=== PATIENT | female | born 1990 | race Caucasian/White ===

== ENCOUNTER 2016-10-31 14:50 | Emergency (ER) | payer OTHER ==
[2016-10-31 18:36] VITALS: BP 113/77
--- NOTE | 2016-10-31 18:46 | UC ---
Complaint Female HPI - History Of Current Complaint Chief Complaint: [facility]CGU Stated Complaint: PERSONAL Time Seen by Provider: 10/31/16 17:42 Hx Obtained From: Patient Hx Last Menstrual Period: 10/26/16 ?: No Onset/Duration: Gradual Onset, Lasting Weeks - 2, Still Present, Worse Since - LAST 2 DAYS. VERY MILD UNTIL NOW. Timing: Constant Severity Initially: Mild Severity Currently: Moderate - ITCHY Character: Not Applicable - IRRITABLE, ITCHY Aggravating Factor(s): Nothing Alleviating Factor(s): Nothing Associated Signs And Symptoms: Positive: Vaginal Discharge - WHITE. Negative: Fever, Vaginal Bleeding/Discharge, Nausea, Vomiting(# Of Episodes =), Genital Swelling, Genital Blisters - Allergies/Home Medications Allergies/Adverse Reactions: Allergies Allergy/AdvReac Type Severity Reaction Status Date / Time Sulfa Drugs Allergy Hives Verified 10/31/16 16:11 PMH/Surg Hx/FS Hx/Imm Hx Previously Healthy: Yes Endocrine History Of: Denies: Diabetes, Thyroid Disease Cardiovascular History Of: Denies: Cardiac Disorders, Hypertension Respiratory History Of: Denies: COPD, Asthma GI/ History Of: Denies: Ulcer Psychological History Of: Denies: Anxiety, Depression - Surgical History Surgical History: None - Family History Known Family History: Positive: Cardiac Disease Negative: Hypertension, Diabetes - Social History Occupation: Employed Full-time Lives: With Family Alcohol Use: Daily Alcohol Amount: 1 beer a day Substance Use Type: None Smoking Status (MU): Never Smoked Tobacco - Immunization History Most Recent Influenza Vaccination: last year Most Recent Tetanus Shot: utd 1 week ago Most Recent Pneumonia Vaccination: none Review of Systems Constitutional: Negative Skin: Negative Respiratory: Negative Cardiovascular: Negative Gastrointestinal: Negative Genitourinary: Other - SEE HPI All Other Systems Reviewed And Are Negative: Yes Physical Exam Triage Information Reviewed: Yes Appearance: Well-Appearing, No Pain Distress, Well-Nourished Vital Signs: Initial Vital Signs Temp 99.6 F 10/31/16 16:12 Pulse 76 10/31/16 16:12 Resp 16 10/31/16 16:12 BP 109/78 10/31/16 16:12 Pulse Ox 100 10/31/16 16:12 Vital Signs Reviewed: Yes Eyes: Positive: Conjunctiva Clear. Negative: Discharge ENT: Positive: Hearing grossly normal. Negative: Muffled/hoarse voice Neck: Positive: Supple Respiratory: Positive: Lungs clear, Normal breath sounds, No respiratory distress, No accessory muscle use Cardiovascular: Positive: RRR, No Murmur Abdomen Description: Positive: Nontender, Soft. Negative: CVA Tenderness (R), CVA Tenderness (L), Distended, Guarding Bowel Sounds: Positive: Present Musculoskeletal Exam: Normal Neurological: Positive: Alert, Muscle Tone Normal Psychological: Positive: Age Appropriate Behavior Skin Exam: Normal UC Physical Exam Vital Signs On Initial Exam: Initial Vitals Temp Pulse Resp BP Pulse Ox 99.6 F 76 16 109/78 100 10/31/16 16:12 10/31/16 16:12 10/31/16 16:12 10/31/16 16:12 10/31/16 16:12 - Genitalia Exam Female Genitourinary: Normal External Exam, Other - NO DISCHARGE OR ODOR NOTED IN PROCESS OF OBTAINING AFFIRM SWAB. Complaint Female Dx - Course Course Of Treatment: STD SCREENING OFFERED. PT DECLINED. - Differential Dx/Diagnosis Provider Diagnoses: VAGINITIS Discharge - Discharge Plan Condition: Stable Disposition: HOME Patient Education Materials: Vaginitis (ED) Referrals: Jose Cruz MD [Primary Care Provider] - If Needed Additional Instructions: WE ARE DOING A LAB TEST TO DETERMINE WHAT THE CAUSE OF YOUR PROBLEM IS. YOU YOU BE CALLED WITH RESULTS. YOU CAN ALSO CALL TO CHECK IF YOU DON'T HEAR FROM US. IT IS IMPORTANT TO REPLENISH THE BODY'S BALANCE OF "GOOD" BACTERIA BY EATING HIGH QUALITY CULTURED FOOD SUCH YOGURT, SAURKRAUT OR HOMAR CHI AND/OR TAKING A PROBIOTIC SUPPLEMENT.
== END 2016-10-31 18:36 | disposition home or self-care (01) ==
LOC: UCCORT 14:50
DX: N76.0 Acute vaginitis (principal); Z88.2 Allergy status to sulfonamides
CPT/HCPCS: 87480; 87510; 99212; G0463

== ENCOUNTER 2019-03-24 11:39 | Emergency (ER) | payer OTHER ==
[2019-03-24 12:30] VITALS: BP 107/73
--- NOTE | 2019-03-24 12:52 | UC ---
Back Pain HPI - HPI Summary HPI Summary: Patient is a healthy 28-year-old female here with lower back pain. Patient was bucked off a horse 8 days ago and had mild lower back pain. Her pain went away until last night when she suddenly developed severe lower back pain. Patient's pain is worse when she stands from a sitting position. Patient has never had panic this before. Patient has no fever, history of diabetes, history of IV drug use, weakness in her legs, tingling in her legs, bowel/bladder dysfunction , saddle anesthesia. Patient has not taken any medications for this. Medications reviewed - History of Current Complaint Chief Complaint: UCBackPain Stated Complaint: LOWER BACK INJURY Time Seen by Provider: 03/24/19 12:36 Hx Obtained From: Patient Hx Last Menstrual Period: 03/08/19 Pain Intensity: 5 - Allergies/Home Medications Allergies/Adverse Reactions: Allergies Allergy/AdvReac Type Severity Reaction Status Date / Time Sulfa (Sulfonamide Allergy Hives Verified 03/24/19 12:31 Antibiotics) PMH/Surg Hx/FS Hx/Imm Hx Previously Healthy: Yes - Surgical History Surgical History: None - Family History Known Family History: Positive: Cardiac Disease, Non-Contributory Negative: Hypertension, Diabetes - Social History Alcohol Use: Daily Alcohol Amount: 1 beer a day Substance Use Type: None Smoking Status (MU): Never Smoked Tobacco - Immunization History Most Recent Influenza Vaccination: last year Most Recent Tetanus Shot: utd 1 week ago Most Recent Pneumonia Vaccination: none Review of Systems All Other Systems Reviewed And Are Negative: Yes Constitutional: Negative: Fever, Chills ENT: Negative: Sore Throat, Nasal Discharge Respiratory: Negative: Cough Cardiovascular: Negative: Chest Pain Gastrointestinal: Negative: Vomiting, Diarrhea Genitourinary: Negative: Dysuria, Hematuria, Frequency Physical Exam - Summary Physical Exam Summary: Vital Signs Reviewed: Yes A+Ox3, no distress Eyes: Conjunctiva Clear, PERRL. EOM intact and full ENT: Hearing grossly normal TM x 2 clear, moist, uvula midline, no exudate, no erythema Neck: Positive: Supple Respiratory: Positive: No respiratory distress, No accessory muscle use + CTA throughout no w/r Cardiovascular: RRR nl s1, s2 no m/r CBT <2 sec abd soft + BS nt/nd no guarding, no distension Musculoskeletal Exam: Patient is slow to get up from a standing position. Once patient stands up she walks with a normal gait. Patient has limited range of motion in flexion and extension of the back. No midline or paraspinal tenderness Neurological: Positive: Alert, + sensation throughout Psychological: Positive: Normal Response To Family Skin: no rash, no ecchymosis Vital Signs: Initial Vital Signs Temp 98.4 F 03/24/19 12:25 Pulse 73 03/24/19 12:25 Resp 16 03/24/19 12:25 BP 107/73 03/24/19 12:25 Pulse Ox 100 03/24/19 12:25 Back Pain Course/Dx - Course Course Of Treatment: Patient is here with lower back pain. Patient did fall from horse 8 days ago but did not have any pain until last night. Patient has no red flag symptoms of back pain and does not need an emergent MRI. Patient was educated on taking ibuprofen and using [id number] back patches. Patient was prescribed Flexeril. - Differential Dx/Diagnosis Provider Diagnosis: Back muscle spasm Discharge ED - Sign-Out/Discharge Documenting (check all that apply): Patient Departure All imaging exams completed and their final reports reviewed: No Studies - Discharge Plan Condition: Stable Disposition: HOME Prescriptions: Cyclobenzaprine TAB* [Flexeril 10 MG TAB*] 10 mg PO BID PRN #12 tab PRN Reason: muscle spasm Patient Education Materials: Muscle Spasm (ED), Acute Low Back Pain (ED) Referrals: Jose Cruz MD [Primary Care Provider] - Additional Instructions: Please take 600 mg of ibuprofen every 6 hours as needed for pain Please go to the grocery store and buy the back patches we discussed Please take your prescribed muscle relaxant if those medicines are not working please do not take the prescribed muscle relaxant before driving, working, or taking care of children Please return to the emergency department if you have difficulty going to the bathroom, weakness in your leg, or any other concerning symptoms. - Billing Disposition and Condition Condition: STABLE Disposition: Home
== END 2019-03-24 13:06 | disposition home or self-care (01) ==
LOC: UCCORT 11:39
DX: M62.830 Muscle spasm of back (principal); Z88.2 Allergy status to sulfonamides
CPT/HCPCS: 99212; G0463